=== PATIENT | male | born 1995 | race African-American/Black ===

== ENCOUNTER 2017-06-22 15:07 | Emergency (ER) | payer SELFPAY ==
[~2017-06-22] VITALS: Ht 180.3 cm; Wt 70.0 kg
[2017-06-22 15:10] VITALS: BP 130/60; PULSE 61; RESP 14; TEMP 98; O2SAT 100
[2017-06-22 15:59] LABS: AUTOMATED NEUTROPHIL # 2.6 TH/MM3 (1.8-7.7); BASOPHIL % 0.6 % (0.0-2.0); EOSINOPHIL # 0.1 TH/MM3 (0-0.4); EOSINOPHIL % 2.6 % (0.0-4.0); HEMATOCRIT 47.6 % (39.0-51.0); HEMO FLAGS DIFF FINAL; LYMPH % 36.4 % (9.0-44.0); MEAN CELL VOLUME 82.3 FL (80.0-100.0); MEAN CORPUSCULAR HEMOGLOBIN 27.5 PG (27.0-34.0); MEAN CORPUSCULAR HGB CONC 33.4 % (32.0-36.0); NEUT % 49.4 % (16.0-70.0); PLATELET COUNT 177 TH/MM3 (150-450); RED BLOOD COUNT 5.78 MIL/MM3 (4.50-5.90); RED CELL DISTRIBUTION WIDTH 14.2 % (11.6-17.2); WHITE BLOOD COUNT 5.4 TH/MM3 (4.0-11.0)
[2017-06-22 16:03] LABS: BLOOD, URINE SMALL (NEG); GLUCOSE,URINE NEG (NEG); KETONE, URINE NEG (NEG); MUCUS URINE FEW /lpf (OCC); NITRITE,URINE NEG (NEG); PH, URINE 6.5 (5.0-8.5); URINE COLOR YELLOW (YELLW/STRAW)
[2017-06-22 16:04] LABS: COMMENT (UR) CULTURE INDICATED; CULTURE IF INDICATED CULTURE INDICATED
[2017-06-22 16:16] LABS: ALKALINE PHOSPHATASE 56 U/L (45-117); ALT (GPT) 27 U/L (9-52); TOTAL BILIRUBIN ADULT 0.6 MG/DL (0.2-1.0)
[2017-06-22 16:25] LABS: ANION GAP 7 MEQ/L (5-15); AST (GOT) 31 U/L (15-39); BICARBONATE 27.7 MEQ/L (21.0-32.0); BLOOD UREA NITROGEN 12 MG/DL (7-18); CHLORIDE 106 MEQ/L (98-107); GLOMERULAR FILTRATION RATE 107 ML/MIN (>89); SODIUM (NA) 141 MEQ/L (136-145)
[2017-06-22 16:28] LABS: POTASSIUM 4.1 MEQ/L (3.5-5.1)
[2017-07-06] MEDS ORDERED: DOXY100C PO (09:24)
== END 2017-06-22 17:46 | disposition left against medical advice (07) ==
LOC: NED 15:07
DX: R10.30 Lower abdominal pain, unspecified (principal); Z53.21 Procedure and treatment not carried out due to patient leaving prior to being seen by health care provider
CPT/HCPCS: 80053; 81001; 83690; 85025; 87086; 99281

== ENCOUNTER 2017-12-09 19:47 | Emergency (ER) | payer MEDICAID, OTHER ==
[~2017-12-09 19:47] MED LIST: DOXY100C PO
[2017-12-09 20:25] VITALS: BP 122/55; PULSE 69; RESP 20; TEMP 97.9
== END 2017-12-09 21:39 | disposition left against medical advice (07) ==
LOC: PHEFT 19:47
DX: Z53.21 Procedure and treatment not carried out due to patient leaving prior to being seen by health care provider (principal)
CPT/HCPCS: 99281

== ENCOUNTER 2017-12-11 10:32 | Emergency (ER) | payer OTHER ==
[~2017-12-11] VITALS: Ht 182.9 cm; Wt 68.0 kg
[2017-12-11 10:38] VITALS: BP 138/58; PULSE 57; RESP 16; TEMP 97.2; O2SAT 99
--- NOTE | 2017-12-11 11:24 | PD ---
HPI Chief Complaint: Complaint Time Seen by Provider: 11:10 Travel History International Travel<30 days: No Contact w/Intl Traveler<30days: No Traveled to known affect area: No History of Present Illness HPI Patient comes to emergency department complaining of a rash on his glans penis that began about a week before he was treated for gonorrhea and chlamydia. Patient denies any pain or pruritus with this. Denies any dysuria, testicular pain, abdominal pain, penile discharge, or fevers. Denies anything making symptoms better or worse. Denies trying anything for it. Reports is unchanged from initial onset. PFSH Past Medical History Heart Rhythm Problems: No Cardiovascular Problems: No Chest Pain: No Cystic Fibrosis: No Developmental Delay: No Diminished Hearing: No Gastrointestinal Disorders: No Genitourinary: No Headaches: No Hypertension: No Musculoskeletal: No Neurologic: No Respiratory: No Integumentary: Yes (ECZEMA) Immunizations Current: Yes Seizures: No Sleep Apnea: No Tetanus Vaccination: Unknown Past Surgical History Abdominal Surgery: No Thoracic Surgery: No Other Surgery: No Social History Alcohol Use: Yes (occassional) Tobacco Use: No Substance Use: Yes ("blunts") Allergies-Medications (Allergen,Severity, Reaction): Coded Allergies: penicillin G (Unverified Allergy, Unknown, 12/11/17) Reported Meds & Prescriptions Reported Meds & Active Scripts Active Nystatin Topical (Nystatin) 100,000 unit/gm Cream 1 Applic TOPICAL BID Review of Systems Except as stated in HPI: all other systems reviewed are Neg Physical Exam Narrative GENERAL: Well-developed, well nourished, in no acute distress, and non-ill appearing. SKIN: Flat small smooth lesions noted on glans penis. Circumcised. Rash is not consistent with herpes, syphilis, or cellulitis. Possibly fungal. There is no drainage. HEAD: Atraumatic. Normocephalic. EYES: Pupils equal and round. EOMI. No scleral icterus. No injection or drainage. ENT: No nasal bleeding or discharge. Mucous membranes pink and moist. NECK: Trachea midline. Supple. No nuclear rigidity. RESPIRATORY: No accessory muscle use. No respiratory distress. MUSCULOSKELETAL: No obvious deformities. No clubbing. No cyanosis. No edema. Full range of motion. NEUROLOGICAL: Awake and alert. No obvious cranial nerve deficits. Motor grossly within normal limits. Normal speech. PSYCHIATRIC: Appropriate mood and affect; insight and judgment normal. Data Data Last Documented VS Vital Signs Date Time Temp Pulse Resp B/P (MAP) Pulse Ox O2 Delivery O2 Flow Rate FiO2 12/11/17 10:38 97.2 57 16 138/58 (84) 99 Orders Orders Ed Discharge Order (12/11/17 11:25) MDM Medical Decision Making Medical Screen Exam Complete: Yes Emergency Medical Condition: Yes Differential Diagnosis Herpes, syphilis, yeast infection, nonspecific rash Narrative Course The patient presented with nonspecific rash/dermatitis. There were no blisters or bullae, target lesions, purpura or petechia, nor vesiculobullous or scarlatiniform lesions. The patient looks great and was non-ill appearing. There was no evidence to suggest scabies, cellulitis, folliculitis or abscess, Staph. Scalded Skin Syndrome, Toxic Shock, Toxic Epidermal necrolysis, Kaw[place] , Measles, Rubella, cutaneous T cell lymphoma, Erythema Multiforme (minor or major). Plan of care was discussed with the patient and the patient is to follow up with their physician. The patient agreed with plan. Patient in no obvious distress upon re-evaluation. Patient was asked if they wanted to speak to my attending, which the patient did not wish to do at this time. Any questions/concerns in reference to patient diagnosis/condition discussed and clarified prior to patient's discharge. Reinforced sheer importance of close follow up with patient's primary physician or primary care clinic, salesforce trainer, and/or health department. Instructed patient to return to ED immediately, if symptoms return/worsen. Patient showed understanding of above instructions. Further instructions and recommendations were detailed in discharge paperwork. Patient ambulated without difficulty out of ED at discharge. Diagnosis Primary Impression: Rash Referrals: [facility] [employer] Patient Instructions: Acute Rash (ED), General Instructions Additional Instructions: Follow-up with your primary care physician and/or salesforce trainer in 3-5 days for reevaluation. Follow up with the health department for STD testing. Take all medication as prescribed. Return to the emergency department if symptoms get worse. Med/Other Pt SpecificInfo: Prescription(s) given Scripts Nystatin Topical (Nystatin Topical) 100,000 unit/gm Cream 1 APPLIC TOPICAL BID for Infection, #15 GM 0 Refills Prov: Angle Bonds MD 12/11/17 Disposition: 01 DISCHARGE HOME Condition: Stable Mati Morris Dec 11, 2017 11:24
[2017-12-11] MEDS ORDERED: NYST15T TOPICAL (11:25)
== END 2017-12-11 11:31 | disposition home or self-care (01) ==
LOC: PHED 10:32 → PHEFT 11:31
DX: R21 Rash and other nonspecific skin eruption (principal); Z88.0 Allergy status to penicillin
CPT/HCPCS: 99283